=== PATIENT | female | born 1955 | race Caucasian/White ===

== ENCOUNTER 2023-11-23 07:53 | Inpatient (IN) | payer MEDICARE ==
[~2023-11-23] VITALS: Ht 170.2 cm; Wt 111.5 kg
[2023-11-23] VITALS (26 sets, daily range): BP systolic 100–153; BP diastolic 50–83; PULSE 78–92; RESP 14–19; TEMP 97.9–98.4; O2SAT 91–98
[~2023-11-23 07:53] MED LIST: ATOR20TA66 PO; LISI10TA27 PO; OMEP20CA16 PO; SEMA0.258 SQ; cefazolin 2gm/D5W 100mL 100 ML IV ONE; famotidine 20mg tablet PO ONE; ringers solution, lacted 1,000 ML IV SCH
[2023-11-23] MEDS ORDERED: morphine 2 MG/ML inj. syringe IV PRN (10:05)
[2023-11-23] MEDS ORDERED: hydrALAZINE 20mg/ml inj. IV PRN (10:05)
[2023-11-23] MEDS ORDERED: labetalol 20mg/4ml (5mg/ml) syringe IV PRN (10:05)
[2023-11-23] MEDS ORDERED: ondansetron/PF 4mg/2ml inj IV PRN (10:05)
[2023-11-23] MEDS ORDERED: fentaNYL/PF 50MCG/1 ML 2ML syringe IV PRN (10:05)
[2023-11-23] MEDS ORDERED: morphine 4 MG/ML inj SYRINge IV PRN (10:05)
[2023-11-23] MEDS ORDERED: ringers solution, lacted 1,000 ML IV SCH (10:05)
[2023-11-23] MEDS ORDERED: BUPIVAcaine 2.5mg/ml inj 50ml vial (contains preservative) ONE ×2 (10:48→10:54)
[2023-11-23] MEDS ORDERED: LIDOcaine 1% 30ml preserv. free vial ONE (10:48)
[2023-11-23] MEDS ORDERED: BUPIVACAINE liposomal/PF 13.3 MG/ML vial IM ONE ×2 (10:54→11:32)
[2023-11-23] MEDS ORDERED: desflurane 240ml liquid inh. IH ONE (11:01)
[2023-11-23] MEDS ORDERED: acetaminophen 1,000mg/100ml IV 100 ML IV ONE (11:02)
[2023-11-23] MEDS ORDERED: neostigmine methylsulfate 1 MG/ML 10ml vial ONE (11:04)
[2023-11-23] MEDS ORDERED: ondansetron/PF 4mg/2ml inj ONE (11:04)
[2023-11-23] MEDS ORDERED: dexamethasone sod phosphate 4mg/ml inj. ONE (11:04)
[2023-11-23] MEDS ORDERED: rocuronium 10mg/ml inj IV ONE (11:04)
[2023-11-23] MEDS ORDERED: LIDOcaine 2% (20mg/ml) 5ml vial ONE (11:04)
[2023-11-23] MEDS ORDERED: propofol inj 20 ML IV ONE (11:04)
[2023-11-23] MEDS ORDERED: glycopyrrolate 0.2mg/ml inj ONE (11:04)
[2023-11-23] MEDS ORDERED: fentaNYL/PF 50MCG/1 ML 2ML syringe ONE (11:05)
[2023-11-23] MEDS ORDERED: midazolam 1 mg/ML 2ml injection ONE (11:06)
[2023-11-23] MEDS ORDERED: LIDOcaine 1% 30ml preserv. free vial IJ ONE (11:30)
[2023-11-23] MEDS ORDERED: BUPIVAcaine/PF 2.5 mg/ml (0.25%) 30ml vial IJ ONE (11:31)
[2023-11-23] MEDS ORDERED: sugammadex 200mg/2ml injection IV ONE (12:02)
[2023-11-23] MEDS ORDERED: normal saline 1000ml 1,000 ML IV SCH (14:25)
[2023-11-23] MEDS ORDERED: naloxone 0.4 mg/ml inj IV PRN (14:25)
[2023-11-23] MEDS: fentaNYL/PF 50MCG/1 ML 2ML syringe IV PRN ×2 (14:41→14:55)
[2023-11-23] MEDS: HYDROmorph/NS 0.2 mg/ml PCA 100 ML IV SCH ×6 (15:18→23:00)
[2023-11-23] MEDS: potassium CL 20mEq in D5-1/2NS 1,000 ML IV SCH ×2 (16:11→23:21)
[2023-11-23] MEDS: ondansetron/PF 4mg/2ml inj IV PRN (17:21)
[2023-11-23] MEDS: sennosides/docusate sodium tablet PO SCH (20:00)
[2023-11-23] MEDS: docusate sod 100mg capsule PO SCH (20:00)
[2023-11-23] MEDS: proCHLORperazine 10 MG/2 ml inj IV PRN (21:29)
[2023-11-23] MEDS: heparin, porcine 5000 units/ml vial SQ SCH (21:41)
[2023-11-24] VITALS (9 sets, daily range): BP systolic 97–141; BP diastolic 38–70; PULSE 70–83; RESP 6–18; TEMP 97.3–98.9; O2SAT 92–98
[2023-11-24] MEDS: HYDROmorph/NS 0.2 mg/ml PCA 100 ML IV SCH ×12 (01:00→23:00)
[2023-11-24] MEDS: potassium CL 20mEq in D5-1/2NS 1,000 ML IV SCH ×3 (07:07→22:58)
[2023-11-24] MEDS: pantoprazole 40mg Tablet.DR PO SCH (08:00)
[2023-11-24] MEDS: docusate sod 100mg capsule PO SCH ×2 (08:21→20:39)
[2023-11-24] MEDS: sennosides/docusate sodium tablet PO SCH ×2 (08:21→20:39)
[2023-11-24] MEDS: atorvastatin 20mg tablet PO SCH (08:21)
[2023-11-24] MEDS: lisinopril 10 MG tablet PO SCH (08:25)
[2023-11-24] MEDS: ondansetron/PF 4mg/2ml inj IV PRN (08:31)
[2023-11-24] MEDS: heparin, porcine 5000 units/ml vial SQ SCH ×2 (08:50→20:39)
[2023-11-24] MEDS: proCHLORperazine 10 MG/2 ml inj IV PRN ×2 (11:45→20:06)
[2023-11-25] MEDS: HYDROmorph/NS 0.2 mg/ml PCA 100 ML IV SCH ×3 (01:00→05:00)
[2023-11-25 06:54] VITALS: BP 107/43; PULSE 76; RESP 18; TEMP 98.7; O2SAT 93
[2023-11-25] MEDS: potassium CL 20mEq in D5-1/2NS 1,000 ML IV SCH (07:11)
[2023-11-25 08:15] VITALS: RESP 18; O2SAT 93
[2023-11-25] MEDS: atorvastatin 20mg tablet PO SCH (08:36)
[2023-11-25] MEDS: lisinopril 10 MG tablet PO SCH (08:37)
[2023-11-25] MEDS: docusate sod 100mg capsule PO SCH (08:37)
[2023-11-25 08:39] LABS: BASOPHILS % (AUTO) 0.5 % (0-1); EOSINOPHILS # (AUTO) 0.2 X10'3 (0-0.9); EOSINOPHILS % (AUTO) 1.6 % (0-6); HEMATOCRIT 27.4 % (35.0-45.0); HEMOGLOBIN 8.7 g/dl (12.0-16.0); LYMPHOCYTES # (AUTO) 1.4 X10'3 (1.1-4.8); LYMPHOCYTES % (AUTO) 13.8 % (21-51); MEAN CORPUSCULAR HEMOGLOBIN 22.2 PG (27.0-31.0); MEAN CORPUSCULAR HGB CONC 31.7 g/dL (33.0-36.5); MEAN PLATELET VOLUME 7.9 FL (7.4-10.4); MONOCYTES # (AUTO) 1.2 X10'3 (0-0.9); MONOCYTES % (AUTO) 11.9 % (2-12); NEUTROPHILS # (AUTO) 7.3 X10'3 (1.8-7.7); NEUTROPHILS % (AUTO) 72.2 % (42-75); PLATELET COUNT 267 X10'3 (140-440); RED BLOOD COUNT 3.91 X10'6 (4.20-5.60); WHITE BLOOD COUNT 10.2 X10'3 (4.5-11.0)
[2023-11-25] MEDS: pantoprazole 40mg Tablet.DR PO SCH (08:44)
[2023-11-25 08:56] LABS: ALBUMIN 3.4 G/DL (3.4-5.0); ANION GAP 7 (8-16); BLOOD UREA NITROGEN 23 MG/DL (7-18); BUN/CREATININE RATIO 13.6 (10.0-20.0); CHLORIDE 99 MMOL/L (99-107); CREATININE 1.69 MG/DL (0.40-0.90); GLUCOSE 152 MG/DL (70-104); POTASSIUM 4.8 MMOL/L (3.5-5.1); SODIUM 131 MMOL/L (135-145); TOTAL CARBON DIOXIDE 24.8 MMOL/L (24-32); eCRCL 31 ML/MIN; eGFR 30 ML/MIN
[2023-11-25] MEDS: sennosides/docusate sodium tablet PO SCH (10:11)
[2023-11-25] MEDS: heparin, porcine 5000 units/ml vial SQ SCH (10:12)
[2023-11-25 10:35] VITALS: BP 116/55; PULSE 92; RESP 18; TEMP 98.4; O2SAT 93
[2023-11-25 12:05] VITALS: RESP 18; O2SAT 93
[2023-11-25] MEDS ORDERED: OXYC-145 PO (13:49)
[2023-11-25] MEDS ORDERED: oxyCODONE/APAP 5-325mg tablet PO PRN (13:50)
[2023-11-25] MEDS ORDERED: magnesium hydroxide 30ml (MOM) UD suspension PO ONE (13:50)
[2023-11-25] MEDS ORDERED: oxyCODONE/APAP 5-325mg tablet PO ONE (13:50)
[2023-11-25] MEDS ORDERED: PCA WASTE DOCUMENTATION 1 MG ML MC ONE (14:50)
== END 2023-11-25 14:45 | disposition home or self-care (01) | DRG 337 ==
LOC: PAS 07:53 → PAS IN 14:29 → ORTHO 4S 15:55
PROVIDERS: ADMIT Surgery; ATTEND Surgery
PROC: 8E0W4CZ Robotic Assisted Procedure of Trunk Region, Percutaneous Endoscopic Approach (ICD-10-PCS; 2023-11-23)
PROC: 0DNN4ZZ Release Sigmoid Colon, Percutaneous Endoscopic Approach (ICD-10-PCS; 2023-11-23)
PROC: 0DNU4ZZ Release Omentum, Percutaneous Endoscopic Approach (ICD-10-PCS; 2023-11-23)
PROC: 3E0T3BZ Introduction of Anesthetic Agent into Peripheral Nerves and Plexi, Percutaneous Approach (ICD-10-PCS; 2023-11-23)
PROC: 0WUF4JZ Supplement Abdominal Wall with Synthetic Substitute, Percutaneous Endoscopic Approach (ICD-10-PCS; principal; 2023-11-23 11:01)
DX: K43.0 Incisional hernia with obstruction, without gangrene (principal); K66.0 Peritoneal adhesions (postprocedural) (postinfection); Z88.2 Allergy status to sulfonamides; Z79.899 Other long term (current) drug therapy
CPT/HCPCS: 80048; 82948; 85025; 87081; A4215; A4615; A4618; C1781; C9290; G0378; J0131; J0690; J0780; J1100; J1170; J1644; J2250; J2270; J2405; J2704; J2710; J3010; J3480; J3490; J7120